=== PATIENT | male | born 1975 | race Two or more races ===

== ENCOUNTER 2016-06-01 13:48 | Emergency (ER) | payer OTHER ==
[2016-06-01] MEDS ORDERED: NS 1,000 ML IV ONE ×2 (14:31→16:15)
[2016-06-01 14:51] LABS: % IMMATURE GRANULYOCYTES 0.2 % (0.0-1.1); ABSOLUTE IMMATURE GRANULOCYTES 0.01 10^3/uL (0.00-0.10); ADD DIFF? NO; ADD MORPH? NO; ADD SCAN? NO; ATYPICAL LYMPHOCYTE FLAG 0 (0-99); FRAGMENT RBC FLAG 0 (0-99); HEMATOCRIT 41.6 % (40.0-51.0); HEMOGLOBIN 14.3 g/dL (13.7-17.5); LEFT SHIFT FLG 0 (0-99); LIPEMIA HEMOLYSIS FLAG 90 (0-99); MEAN CELL HEMOGLOBIN 30.8 pg (27.9-34.1); MEAN CELL HEMOGLOBIN CONCENTR. 34.4 g/dL (32.4-36.7); MEAN CELL VOLUME 89.7 fL (81.5-99.8); MEAN PLATELET VOLUME 9.2 fL (8.7-11.7); PLATELET CLUMPS FLAG 0 (0-99); PLATELET COUNT 210 10^3/uL (150-400); RED BLOOD CELL COUNT 4.64 10^6/uL (4.40-6.38); RED CELL DISTRIBUTION WIDTH 11.9 % (11.5-15.2)
[2016-06-01 15:04] VITALS: TEMP 97.7; O2SAT 99
[2016-06-01 15:07] LABS: ANION GAP 9 mEq/L (8-16); CALCIUM 8.6 mg/dL (8.5-10.4); CARBON DIOXIDE 26 mEq/l (22-31); CHLORIDE 104 mEq/L (97-110); CREATININE 0.8 mg/dL (0.7-1.3); GLOMERULAR FILTRATION RATE > 60; GLUCOSE 122 mg/dL (70-100); POTASSIUM 4.1 mEq/L (3.5-5.2); SODIUM 139 mEq/L (134-144)
[2016-06-01] MEDS ORDERED: MECLIZINE HCL 25 MG TAB PO ONE (15:45)
--- NOTE | 2016-06-01 15:58 | UCPHY ---
H & P Time Seen by Provider: 06/01/16 15:11 Patient Type: Established HPI/ROS: 41-year-old male presents after having near syncopal episode at work earlier today with ongoing feelings of dizziness/vertigo. He admits that for the last several weeks prior to the onset of this illness today he has had cold symptoms possible flu-like illness as well as sinusitis. Review of systems General no fever no chills no weakness HEENT no eye pain no eye discharge. No eye redness, no sore throat Respiratory no cough, no shortness of breath Cardiac no chest pain, no peripheral edema GI no abdominal pain, no diarrhea, no constipation, positive nausea, no vomiting no flank pain, no hematuria, no dysuria Musculoskeletal no myalgias, no joint pain Heme no easy bruising, no easy bleeding Endo no polyuria, no polydipsia Skin no rashes, no pruritus Neuro no syncope, positive dizziness, no headaches Psych is no suicidal ideation, no homicidal ideation Past Medical/Surgical History: Noncontributory Social History: Denies alcohol or drug use Smoking Status: Never smoked Physical Exam: 41-year-old male alert and oriented no acute distress nontoxic appearance HEENT atraumatic normocephalic, extraocular muscles intact, anicteric Positive no add this with right lateral gaze Oropharynx negative for erythema negative exudate, tolerating her own secretions Neck supple no meningismus Lungs clear to auscultation bilaterally Heart regular rate and rhythm without murmur rub or gallop Abdomen nondistended normoactive bowel sounds soft nontender Back no CVA tenderness, no step-offs, no spinal tenderness Extremities no cyanosis clubbing or edema Neuro alert and oriented, no focal deficits No drift Constitutional: Initial Vital Signs Temperature (C) 36.5 C 06/01/16 14:40 Heart Rate 79 06/01/16 14:40 Respiratory Rate 18 06/01/16 14:40 Blood Pressure 113/66 06/01/16 14:40 O2 Sat (%) 99 06/01/16 14:40 O2 Delivery Mode Room Air Allergies/Adverse Reactions: Penicillins Allergy (Verified 06/01/16 14:46) Home Medications: Medication Instructions Recorded Doxycycline Calcium 06/01/16 Meclizine HCl [Meclizine HCl 25 mg 25 mg PO TID PRN #30 tab 02/13/17 (RX,OTC)] Ondansetron Odt [Zofran Odt 4 mg 4 mg PO Q4 PRN #20 tab 06/01/16 (*)] Medical Decision Making ED Course/Re-evaluation: Patient seen and evaluated for near syncope, dizziness, vertigo like symptoms. EKG normal sinus rhythm Labs all within normal limits Physical exam significant only for right lateral gaze nystagmus Patient given IV fluids as well as ondansetron and meclizine. Patient appears markedly improved Impression Acute labyrinthitis Plan DC home with meclizine, ondansetron Follow up with primary care physician [facility] closest emergency room if worsening - Data Points Laboratory Results: Laboratory Results 06/01/16 14:47 06/01/16 14:47 Medications Given: Discontinued Medications Sodium Chloride (Ns) 1,000 mls @ 0 mls/hr IV ONCE ONE PRN Reason: Wide Open Stop: 06/01/16 14:32 Last Admin: 06/01/16 14:48 Dose: 1,000 mls Sodium Chloride (Ns) 1,000 mls @ 0 mls/hr IV ONCE ONE PRN Reason: Wide Open Stop: 06/01/16 16:16 Last Admin: 06/01/16 16:15 Dose: 1,000 mls Meclizine HCl (Meclizine Hcl) 25 mg PO EDNOW ONE Stop: 06/01/16 15:46 Last Admin: 06/01/16 16:05 Dose: 25 mg Ondansetron HCl (Zofran) 4 mg IVP EDNOW ONE Stop: 06/01/16 16:00 Last Admin: 06/01/16 16:04 Dose: 4 mg Ondansetron HCl (Zofran Odt 4 Mg Prepack#2) 1 btl TAKEHOME EDNOW ONE Stop: 06/01/16 18:16 Last Admin: 06/01/16 18:25 Dose: 1 btl Departure - Departure Disposition: Home, Routine, Self-Care Clinical Impression: Acute labyrinthitis Condition: Good Instructions: Labyrinthitis (ED) Referrals: Elva Banerjee MD [Primary Care Provider] - As per Instructions Prescriptions: Meclizine HCl [Meclizine HCl 25 mg (RX,OTC)] 25 mg PO TID PRN #30 tab PRN Reason: Dizziness Ondansetron Odt [Zofran Odt 4 mg (*)] 4 mg PO Q4 PRN #20 tab PRN Reason: Nausea/Vomiting, Can'T Take Po - PQRS PQRS Measurement: na
[2016-06-01] MEDS ORDERED: ONDANSETRON 4 MG/2 ML VIAL IVP ONE (15:59)
[2016-06-01] MEDS ORDERED: ONDANSETRON 4MG PREPACK#2 BTL TAKEHOME ONE (18:15)
[2016-06-01 19:00] VITALS: BP 119/82; PULSE 66; RESP 20
== END 2016-06-01 18:25 | disposition home or self-care (01) ==
LOC: CED 13:48
DX: H83.09 Labyrinthitis, unspecified ear (principal); Z88.0 Allergy status to penicillin
CPT/HCPCS: 80048-PO; 85025-PO; J2405